=== PATIENT | female | born 1985 | race Caucasian/White ===

== ENCOUNTER 2025-04-06 14:14 | Emergency (ER) | payer SELFPAY ==
[~2025-04-06] VITALS: Ht 160 cm; Wt 64.4 kg
[2025-04-06] MEDS ORDERED: SODIUM CHLORIDE 0.9% 1,000 ML IV ONE (14:45)
[2025-04-06] MEDS ORDERED: LORazepam 0.5 MG TAB PO ONE (14:45)
[2025-04-06 15:00] LABS: MANUAL DIFF REFLEX YES; MEAN CELL VOLUME 98.1 fl (81.0-99.0); MEAN CORPUSCULAR HGB 31.5 pg (27.0-31.0); MEAN PLATELET VOLUME 10.5 fl (9.6-12.3); NUCLEATED RED BLOOD CELL 0.0 % (0.0-0.0); NUCLEATED RED BLOOD CELL 0.0 10*3/uL (0.0-0.0); PLATELET COUNT AUTOMATED 353 10*3/uL (130-400); RED CELL DISTRI WIDTH 12.4 % (0-14.5)
[2025-04-06 15:32] LABS: BUN 6 mg/dl (9-23); SGPT/ALT 24 U/L (5-49)
[2025-04-06 15:39] LABS: PLATELET SUFFICIENCY NORMAL (NORMAL)
[2025-04-06 16:04] LABS: BILIRUBIN Negative (Negative); BLOOD 1+ (Negative); CLARITY Clear (Clear); COLOR Yellow (Yellow); KETONE Negative (Negative); LEUKO ESTERASE Negative (Negative); NITRITE Negative (Negative); PH 7.5 (4.5-8.0); SPECIFIC GRAVITY <= 1.005 (1.001-1.030); UROBILINOGEN 1.0 E.U./dl (0.0-1.0)
[2025-04-06 16:12] LABS: URINE AMPHETAMINES Negative (1000ng/ml); URINE BARBITURATES Negative (200ng/ml); URINE BENZODIAZEPINES Negative (200ng/ml); URINE CANNABINOIDS (THC) Positive (50ng/ml); URINE COCAINE Negative (300ng/ml); URINE METHADONE Negative (300ng/ml); URINE OPIATES Negative (300ng/ml); URINE PHENCYCLIDINE Negative (25ng/ml)
[2025-04-06 16:13] LABS: BACTERIA 1+; EPITHELIAL CELLS 16-20; WBC 0-2 wbc/hpf (0-5)
[2025-04-06] MEDS ORDERED: ATIVAN0.5 MG PO (17:08)
== END 2025-04-06 17:33 | disposition home or self-care (01) ==
LOC: ED 14:14
PROVIDERS: Nurse Practitioner Family
DX: F43.10 Post-traumatic stress disorder, unspecified (principal); F41.9 Anxiety disorder, unspecified; G57.00 Lesion of sciatic nerve, unspecified lower limb

== ENCOUNTER 2025-04-25 20:54 | Emergency (ER) | payer SELFPAY ==
[~2025-04-25] VITALS: Ht 160 cm; Wt 61.2 kg
[~2025-04-25 20:54] MED LIST: ATIVAN0.5 MG PO
[2025-04-25] MEDS ORDERED: LIDOCAINE 1 EA PATCH T ONE (22:20)
== END 2025-04-25 22:38 | disposition home or self-care (01) ==
LOC: ED 20:54
DX: F31.12 Bipolar disorder, current episode manic without psychotic features, moderate (principal); F41.9 Anxiety disorder, unspecified

== ENCOUNTER 2025-04-27 09:22 | Emergency (ER) | payer SELFPAY ==
[~2025-04-27] VITALS: Ht 160 cm; Wt 61.7 kg
[2025-04-27] MEDS ORDERED: LORazepam 1 MG TAB PO ONE (09:30)
[2025-04-27] MEDS ORDERED: SODIUM CHLORIDE 0.9% 1,000 ML IV ONE (09:30)
[2025-04-27 09:47] LABS: BASO # 0.1 10*3/uL (0.0-0.1); BASO % 0.7 % (0.0-1.0); EOS # 0.1 10*3/uL (0.0-0.4); EOS % 0.8 % (1.0-4.0); MEAN CELL VOLUME 96.9 fl (81.0-99.0); MEAN CORPUSCULAR HGB 31.2 pg (27.0-31.0); MEAN PLATELET VOLUME 10.5 fl (9.6-12.3); MONO # 0.7 10*3/uL (0.1-1.0); MONO % 7.0 % (3.0-9.0); NEUT # 6.7 10*3/uL (2.3-7.9); NEUT % 64.1 % (47.0-73.0); NUCLEATED RED BLOOD CELL 0.0 % (0.0-0.0); NUCLEATED RED BLOOD CELL 0.0 10*3/uL (0.0-0.0); PLATELET COUNT AUTOMATED 286 10*3/uL (130-400); RED CELL DISTRI WIDTH 12.3 % (0-14.5)
[2025-04-27 10:22] LABS: BUN 11 mg/dl (9-23)
== END 2025-04-27 10:33 | disposition left against medical advice (07) ==
LOC: ED 09:22
PROVIDERS: Emergency Medicine
DX: R00.2 Palpitations (principal); F41.9 Anxiety disorder, unspecified; H92.02 Otalgia, left ear; M54.50 Low back pain, unspecified; F31.9 Bipolar disorder, unspecified; Z79.899 Other long term (current) drug therapy

== ENCOUNTER 2025-04-28 13:07 | Emergency (ER) | payer SELFPAY ==
[~2025-04-28] VITALS: Ht 165.1 cm; Wt 68.0 kg
[2025-04-28] MEDS ORDERED: SODIUM CHLORIDE 0.9% 1,000 ML IV ONE (13:25)
[2025-04-28 13:42] LABS: BASO # 0.1 10*3/uL (0.0-0.1); BASO % 0.5 % (0.0-1.0); EOS # 0.1 10*3/uL (0.0-0.4); EOS % 0.4 % (1.0-4.0); MEAN CELL VOLUME 96.4 fl (81.0-99.0); MEAN CORPUSCULAR HGB 31.7 pg (27.0-31.0); MEAN PLATELET VOLUME 10.6 fl (9.6-12.3); MONO # 0.8 10*3/uL (0.1-1.0); MONO % 6.7 % (3.0-9.0); NEUT # 7.4 10*3/uL (2.3-7.9); NEUT % 59.8 % (47.0-73.0); NUCLEATED RED BLOOD CELL 0.0 % (0.0-0.0); NUCLEATED RED BLOOD CELL 0.0 10*3/uL (0.0-0.0); PLATELET COUNT AUTOMATED 301 10*3/uL (130-400); RED CELL DISTRI WIDTH 12.3 % (0-14.5)
[2025-04-28 14:22] LABS: BUN 9 mg/dl (9-23); SGPT/ALT 27 U/L (5-49)
[2025-04-28 14:23] LABS: ETHYL ALCOHOL < 3.0 mg/dl (<3)
[2025-04-28 16:00] LABS: BILIRUBIN Negative (Negative); BLOOD Negative (Negative); CLARITY Clear (Clear); COLOR Yellow (Yellow); KETONE 2+ (Negative); LEUKO ESTERASE Negative (Negative); NITRITE Negative (Negative); PH 6.0 (4.5-8.0); SPECIFIC GRAVITY 1.015 (1.001-1.030); UROBILINOGEN 0.2 E.U./dl (0.0-1.0)
[2025-04-28 16:07] LABS: URINE AMPHETAMINES Negative (1000ng/ml); URINE BARBITURATES Negative (200ng/ml); URINE BENZODIAZEPINES Negative (200ng/ml); URINE CANNABINOIDS (THC) Positive (50ng/ml); URINE COCAINE Negative (300ng/ml); URINE METHADONE Negative (300ng/ml); URINE OPIATES Negative (300ng/ml); URINE PHENCYCLIDINE Negative (25ng/ml)
[2025-04-28 16:14] LABS: BACTERIA 1+; MUCOUS 2+
[2025-04-28] MEDS ORDERED: ACETAMINOPHEN 325 MG TAB PO ONE (20:55)
[2025-04-28] MEDS ORDERED: LIDOCAINE 1 EA PATCH T ONE (20:55)
== END 2025-04-28 22:16 ==
LOC: ED 13:07
PROVIDERS: Nurse Practitioner Family
DX: F29 Unspecified psychosis not due to a substance or known physiological condition (principal); F41.9 Anxiety disorder, unspecified; F31.9 Bipolar disorder, unspecified